=== PATIENT | male | born 1995 | race Caucasian/White ===

== ENCOUNTER 2021-03-01 18:00 | Emergency (ER) | payer OTHER ==
[~2021-03-01] VITALS: Ht 182.9 cm; Wt 113.4 kg
[2021-03-01 19:20] VITALS: BP 152/90
--- NOTE | 2021-03-01 20:02 | NUR ---
To Chair Argelia
--- NOTE | 2021-03-01 20:22 | NUR ---
d/c with VSS. d/c education given. opportunity to ask questions given and answered. no rx given.
== END 2021-03-01 20:22 | disposition home or self-care (01) ==
LOC: MED 18:00
DX: S00.81XA Abrasion of other part of head, initial encounter (principal); S40.811A Abrasion of right upper arm, initial encounter; S40.812A Abrasion of left upper arm, initial encounter; S30.811A Abrasion of abdominal wall, initial encounter; Z23 Encounter for immunization; Y29.XXXA Contact with blunt object, undetermined intent, initial encounter; Y93.89 Activity, other specified; Y92.89 Other specified places as the place of occurrence of the external cause; Y99.8 Other external cause status
CPT/HCPCS: 90471; 90715; 99283